=== PATIENT | male | born 1990 | race Asian ===

== ENCOUNTER 2022-08-19 12:51 | Emergency (ER) | payer OTHER ==
[2022-08-19 13:12] VITALS: BP 137/90; PULSE 89; RESP 18; TEMP 98; BMI 40.1
[2022-08-19 14:13] LABS: BASO % 0.8 % (0-2.0); EOS % 1.1 % (0-4.5); HEMATOCRIT 43.4 % (35.4-49); HEMOGLOBIN 13.5 GM/dL (11.7-16.9); LYMPH % 26.1 % (8-40); MCH 20.7 pg (25.7-33.7); MCHC 31.1 g/dl (32.0-35.9); MEAN CELL VOLUME 66.5 fl (80-96); MEAN PLT VOLUME 9.8 fl (7.5-11.1); MONO % 5.2 % (3.8-10.2); NEUT % 66.8 % (42.8-82.8); PLATELET COUNT 296 10^3/uL (134-434); RBC 6.53 M/mm3 (4.00-5.60); RDW 16.5 % (11.9-15.9); WHITE BLOOD COUNT 12.4 K/mm3 (4.0-10.0)
[2022-08-19 14:35] LABS: ALBUMIN 3.4 g/dl (3.4-5.0)
[2022-08-19 14:40] LABS: TOT PROT 7.4 g/dl (6.4-8.2)
[2022-08-19 14:42] LABS: BILIRUBIN,TOTAL 0.3 mg/dL (0.2-1); CREATININE 0.9 mg/dL (0.55-1.3)
[2022-08-19 14:51] LABS: ANISOCYTOSIS 2+; MACROCYTOSIS 0
== END 2022-08-19 17:23 | disposition home or self-care (01) ==
LOC: JER 12:51
DX: I88.9 Nonspecific lymphadenitis, unspecified (principal)
CPT/HCPCS: 36415; 70491-TC; 76536; 80053; 85025; 99285-25